=== PATIENT | male | born 1990 | race Caucasian/White ===

== ENCOUNTER 2017-09-11 08:28 | Emergency (ER) | payer OTHER ==
[~2017-09-11] VITALS: Ht 193 cm; Wt 61.7 kg
[2017-09-11 08:51] VITALS: BP 119/66
--- NOTE | 2017-09-11 09:22 | NUR ---
PATIENT PRESENTS TO ED WITH right hip pain . PT STATES . DENIES N/V/D; SKIN IS PINK/WARM/DRY; AAOX4 WITH EVEN AND STEADY GAIT; LUNGS CLEAR BL; HR EVEN AND REGULAR; PT DENIES ANY FEVER, CP, SOB, OR COUGH AT THIS TIME; PATIENT STATES PAIN OF 5/10 AT THIS TIME; VSS; PATIENT POSITIONED FOR COMFORT; HOB ELEVATED; BEDRAILS UP X2; BED DOWN. ER MD MADE AWARE OF PT STATUS.
--- NOTE | 2017-09-11 09:36 | NUR ---
Patient discharged with v/s stable. Written and verbal after care instructions given and explained. Patient verbalized understanding. Ambulatory with steady gait. All questions addressed prior to discharge. Advised to follow up with PMD.
[2017-09-11 09:37] VITALS: BP 135/86
== END 2017-09-11 09:36 | disposition home or self-care (01) ==
LOC: MED 08:28
DX: S76.312A Strain of muscle, fascia and tendon of the posterior muscle group at thigh level, left thigh, initial encounter (principal); X58.XXXA Exposure to other specified factors, initial encounter; Y93.72 Activity, wrestling; Y92.89 Other specified places as the place of occurrence of the external cause; Y99.8 Other external cause status
CPT/HCPCS: 99282